=== PATIENT | female | born 1935 | race Caucasian/White ===

== ENCOUNTER 2016-08-30 19:26 | Emergency (ER) | payer OTHER ==
[2016-08-30 19:41] VITALS: BP 158/69; PULSE 85; TEMP 97.8; BMI 22.1
--- NOTE | 2016-08-30 19:49 | PDOC ---
Rapid Medical Evaluation Chief Complaint: Urinary Problem Time Seen by Provider: 08/30/16 19:40 Medical Evaluation: Allergies Allergy/AdvReac Type Severity Reaction Status Date / Time No Known Allergies Allergy Verified 08/30/16 19:36 Vital Signs Temp Pulse Resp BP Pulse Ox 97.8 F 85 18 158/69 95 08/30/16 19:36 08/30/16 19:36 08/30/16 19:36 08/30/16 19:36 08/30/16 19:36 08/30/16 19:45 RME Note: I have performed a brief, in-person evaluation of this patient . This patient presents with CC: dysuria x 1 week; hx DM Pertinent PE findings are: 158/69; afebrile I have ordered: UA, UC, cCBC, BMP The patient will proceed to ED for further evaluation.
[2016-08-30 21:01] LABS: CALCIUM 9.4 mg/dL (8.5-10.1); CREATININE 0.7 mg/dL (0.55-1.02)
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
[2016-08-30 21:35] LABS: BASOPHIL 0.7 % (0-2.0); EOSINOPHIL 1.2 % (0-4.5); MCH 31.4 pg (25.7-33.7); MCHC 34.7 g/dl (32.0-36.0); MEAN CELL VOLUME 90.5 fl (80-96); MEAN PLT VOLUME 8.8 fl (7.5-11.1); NEUTROPHILS 63.4 % (42.8-82.8); PLATELET COUNT 273 K/MM3 (134-434); WHITE BLOOD COUNT 7.7 K/mm3 (4.0-10.0)
[2016-08-30 22:33] LABS: URINE APPEARANCE CLEAR; URINE BILIRUBIN NEGATIVE (NEGATIVE); URINE BLOOD NEGATIVE (NEGATIVE); URINE COLOR COLORLESS; URINE GLUCOSE (UA) 1+ (NEGATIVE); URINE KETONE NEGATIVE (NEGATIVE); URINE LEUK ESTERASE NEGATIVE (NEGATIVE); URINE NITRITE NEGATIVE (NEGATIVE); URINE PROTEIN NEGATIVE (NEGATIVE); URINE UROBILINOGEN NEGATIVE E.U./dl (0.2-1.0)
[2016-08-30] MEDS ORDERED: PHENAZOPYRIDINE HCL 100 MG TABLET (FP) PO ONE (23:10)
[2016-08-30] MEDS ORDERED: PHENAZOPYRIDINE HCL 100 MG TABLET (FP) ONE (23:12)
[2016-08-30] MEDS ORDERED: NITROFURANTOIN MACROCRYSTAL 50 MG CAPSULE (FP) ONE (23:12)
[2016-08-30] MEDS ORDERED: NITROFURANTOIN MACROCRYSTAL 50 MG CAPSULE (FP) PO SCH (23:15)
== END 2016-08-30 23:47 | disposition home or self-care (01) ==
LOC: JERFT 19:26
DX: R30.0 Dysuria (principal); N95.2 Postmenopausal atrophic vaginitis; R35.0 Frequency of micturition
CPT/HCPCS: 36415; 80048; 81003; 85025; 87070; 87086; 87205; 99281-25